=== PATIENT | female | born 1970 | race African-American/Black ===

== ENCOUNTER 2023-12-18 01:30 | Day surgery (SDC) | payer BC, SELFPAY ==
[2023-12-06 14:39] VITALS: BMI 41.8
--- NOTE | 2023-12-06 15:20 | PC.NURSE ---
Report to the Outpatient Waiting Room, entrance under the green pavilion located off [facility], at time ___0600am__ on date _Mon12/18/23 . Planned Procedure Time: __0730am . Time changes happen often and if your time is changed the preop area will call you the afternoon before. - You and your visitor will be asked to self-screen and do not enter if you have any COVID symptoms. - A mask is optional within the hospital at this time. - No food or drink for 8 hrs until time of surgery Take the following medications with a SIP of water the morning of surgery: ___escitalopram if desired DO NOT STOP ANY OF YOUR OTHER PRESCRIPTION MEDICATIONS PRIOR TO SURGERY ?EXCEPT THE FOLLOWING Medications to discontinue per physician none Date to take last dose____none Please no make-up, nail greenlandic, hairspray, perfume, deodorant, or body powder the day of surgery. No jewelry (including any body piercings) or valuables the day of surgery, leave them at home. Please take a shower or bath the night before, or the morning of, surgery with an antibacterial soap. Wear comfortable, loose fitting clothing. - Jewelry must be removed prior to entering the operating room. Rings and piercings that are not removed may be cut off. - The hospital will not accept responsibility for valuables. - Please leave all valuables, including medications, at home the day of surgery. If you are going home after surgery, a licensed lokie driver must drive you home. - NO public transportation without another adult if you receive anesthesia. - We recommend that an adult stay with you for 24 hours following discharge. - We also recommend that you do not drive, make important decision, drink alcoholic beverages, or take any drugs that were not prescribed by your health care provider for at least 24 hours after your discharge time. Follow any additional instructions given to you from your surgeon. If you or anyone in your household have experienced Covid symptoms in the past week, please notify your surgeon or the nurse liaison at the phone number below for possible testing. Telephone instructions given to __Dawn and asked if any additional questions and then verbalized understanding. Patient advised to call surgeon office or pre surgery nurse liaison [phone] if any additional questions.
[2023-12-18] VITALS (9 sets, daily range): BP systolic 116–162; BP diastolic 74–92; PULSE 61–89; RESP 12–18; TEMP 36.4–36.6; O2SAT 99–100
[2023-12-18] MEDS: LACTATED RINGERS 1,000 ML 30 ML IV CONT ×2 (06:28→10:24)
[2023-12-18] MEDS: SCOPOLAMINE 1 MG PATCH 1 PATCH TRANSDERM (06:44)
--- NOTE | 2023-12-18 06:50 | P.PNAN_ITS ---
Anes - Initial Pre Proc Eval Procedure: Operation Date: 12/18/23 07:30 Proposed Procedures p Bilateral Breast Reduction - Izabela Velasquez MD Date/Time: 12/18/23 06:50 Surgeon: Izabela Velasquez MD Pre Op Diagnosis: bilat breast hypertrophy Patient Data Age: 52 Gender: F Height: 1.65 m Weight: 113.2 kg Last Vital Signs Temp 36.6 C 12/18/23 06:18 Pulse 89 12/18/23 06:18 Resp 18 12/18/23 06:18 BP 116/76 12/18/23 06:18 Pulse Ox 100 12/18/23 06:18 O2 Del Method Room Air 12/18/23 06:18 Allergies Allergy/AdvReac Type Severity Reaction Status Date / Time adhesive tape AdvReac Intermediate Rash Verified 12/18/23 06:35 Home Medications Medication Instructions Recorded Confirmed Type escitalopram oxalate 20 mg tablet 20 mg PO DAILY 12/06/23 12/18/23 History Patient hx anesthesia problems: none Family hx anesthesia problems: none Results Review: All pre-operative results and documents have been reviewed as part of the pre- operative evaluation. [facility] Past Medical History Medical History (Updated 12/18/23 @ 06:50 by Faizan Dumont MD) Morbid obesity Surgical History Surgical History (Updated 12/18/23 @ 06:51 by Faizan Dumont MD) H/O: hysterectomy History of section Social History Social History Smoking packs per day: 0.5 Smoking cigarettes per day: 10.0 Years smoked: 20 Smoking pack-years: 10.00 Smoking status: Current some day smoker Tobacco type: e-cigarettes/vaping Second hand tobacco smoke exposure: No Additional smoking assessment comments: SWITCHED TO VAPING IN 2022 Alcohol intake: current Substance use: never Substance use type: does not use Do You Feel Safe in your Home?: Yes Lack of Transportation: No Lack of Food: Never True Current Housing: I Have Housing Concerned About Future Housing: No Difficulty Paying Gas/Electric Bills: No Difficulty Paying for Meds: No Currently Unemployed: No Education: High School Diploma/GED Difficulty w/ Childcare or Family Care: No Living arrangements: alone Spiritual care concerns: No Anes - Eval Final PreProcedure Day of Procedure 12/18/23 06:50 Patient weight: morbidly obese Heart: regular rate and rhythm Lungs: clear to auscultation Airway: Mallampati scale class II Neurological: alert and oriented Last oral intake: >/= 8 hours ASA classification: III Emergent: no Anesthetic plan: proceed Anesthesia type and monitoring: general ETT and standard monitoring Results Review: All pre-operative results and documents have been reviewed as part of the pre- operative evaluation. Informed Consent: The patient's anesthetic plan and its attendant risks and benefits were discussed with the patient/family/POA. Questions were solicited and answers provided to the satisfaction of the patient/family/POA.
--- NOTE | 2023-12-18 07:14 | P.HPUP_ITS ---
History and Physical Update Update Date/Time: 12/18/23 07:14 Patient seen and examined in pre-operative holding area. No interval change in medical history or symptoms. Patient remembers previous discussion of benefits and alternatives to procedure. Continues to desire to proceed with bilateral breast reduction. I reviewed the risks including but not limited to bleeding ,infection, asymmetry, undesireable cosmetic appearance, partial/total skin/nipple loss, no change or worsening of symptoms, change in sensation. I discussed the possible use of assistants and their level of participation in the case. Patient stated understanding and signed the consent form wishing to pr oceed
--- NOTE | 2023-12-18 07:14 | W.PM.PROC2 ---
Procedure Note - Detailed Date of Procedure 12/18/23 Pre-op Diagnosis bilat macromastia Post-op Diagnosis Same Procedure Performed b/l breast reduction Surgeon Izabela Velasquez MD Computing Tutor Paige Albarado PA-C Anesthesia General Description of Procedure Patient was seen in the preoperative holding area where consent form was signed was signed and markings were made for a bilateral inferior pedicle Mitchell pattern reduction mammoplasty. Patient was taken back to the operating room placed on the table in the supine position. Time-out was performed with Anesthesia, surgeon, and staff agreeing on patient's name site and surgery to be performed. SCDs were placed on the lower extremities inflated. Antibiotics were given IV. After general anesthesia was administered breasts were prepped and draped in usual sterile fashion. Attend my attention 1st to the right breast where I used a saline moistened lap pad and Jeanne clamp to create a breast tourniquet. I used a 38 mm nipple Sizer to circumscribe the nipple-areolar complex. I then proceeded with de epithelializing an 8 cm wide inferior pedicle. I made my other skin incisions with a 15 blade scalpel through skin and dermis. Bovie cautery was then used to dissect down and elevate my superior skin flaps and Ezio's plane down to the level of the chest wall and up to the level of the clavicle. Now having exposed the right breast I proceeded with resection of 1763 g of tissue with Bovie cautery. I irrigated with normal saline. Hemostasis was achieved with Bovie cautery. I proceeded with plicating the pedicle using 2-0 Vicryl suture. 2-0 Prolene was used to secure the T junction. 3-0 Vicryl was used for dermis. The nipple was brought out 6 cm above the inframammary fold at the most prominent portion of the breast the breast midline. This was secured with 3-0 Vicryl suture. 4-0 Monocryl was used for subcuticular closure. I injected 20 cc of 1% lidocaine with epinephrine and 0.5% Marcaine plain along the inframammary fold and anterior axillary line of breast. And I took my attention to the left breast post similar procedure was performed. I used a breast tourniquet Jeanne clamp and a 38 mm nipple Sizer. De-epithelialized an 8 cm wide inferior pedicle. Minimi the skin incisions and elevated the skin flaps with Bovie cautery and compression plane down to the chest wall and up to the level of the clavicle. I proceeded with resection of 1857 g from the larger left breast. This appeared to be reasonable volume and symmetry to the right breast. I irrigated with normal saline. Hemostasis was achieved with Bovie cautery. I plicated the pedicle with 2-0 Vicryl suture. 2-0 Prolene was used to secure the T-junction. 3-0 Vicryl was used for dermis. The nipple was brought out 6 cm above the inframammary fold at the most prominent portion of the breast at the breast midline and secured with 3-0 Vicryl suture. 4-0 Monocryl was used for subcuticular closure. Again injected 20 cc of 1% lidocaine with epinephrine and 0.5% Marcaine plain for local on the left breast along the inframammary fold and anterior axillary line. There is reasonable size shape and symmetry to the breast. The nipples appeared viable with good cap refill. I Proceed with placing a dressing of Mastisol, Steri-Strips, 4x4s, ABDs and a breast binder. The patient was awakened from anesthesia and transferred to the recovery room in stable condition. Complications: None Estimated blood loss: 75 cc Disposition: Patient tolerated the procedure well and will be going home today. Paige Albarado PA-C was essential for positioning, retraction, closure and dressing placement [facility] [place] Billing Surgery - Charge Forward: Surgery Billing ([id number] same for paige adding modifier )
[2023-12-18] MEDS: ceFAZolin 2 GM/D5W 50 ML 2 GM/50 ML BAG IVPB (07:29)
[2023-12-18] MEDS: LIDO 1%/EPINEPHRINE 1:100,000 50 ML VIAL INFILTRATE (07:58)
[2023-12-18] MEDS: BUPivacaine HCL 0.5% 10 ML AMP 50 ML INFILTRATE (07:59)
--- NOTE | 2023-12-18 09:26 | SUR.OPER ---
Addendum entered by Barbara Gamboa RN 12/18/23 09:53: Left breast tissue- 1857.2g Original Note: Left breast tissue- 1823.8 g Right breast tissue- 1763.6 g
[2023-12-18] MEDS: fentaNYL CITRATE INJ (*CRX) 100 MCG/2 ML VIAL 25 MCG IV PUSH ×2 (10:41→10:46)
[2023-12-18] MEDS: oxyCODONE HCL (*CRX) 5 MG TAB IR PO (12:17)
--- NOTE | 2023-12-18 12:24 | SUR.PHASEII ---
Spoke with Fior DALE regarding patient's drainage to right lateral breast. Fior stated to reinforce with ABD pads and okay for patient to be discharged.
== END 2023-12-18 12:38 | disposition home or self-care (01) ==
PROVIDERS: PCP Family Medicine; Visit Provider Plastic Surgery
PROC: 0HBV0ZZ Excision of Bilateral Breast, Open Approach (ICD-10-PCS; CPT 19318; principal; 2023-12-18 07:30)
DX: N62 Hypertrophy of breast (principal); F17.290 Nicotine dependence, other tobacco product, uncomplicated; E66.01 Morbid (severe) obesity due to excess calories; Z68.41 Body mass index [BMI] 40.0-44.9, adult; Z98.890 Other specified postprocedural states
CPT/HCPCS: 19318; 88305; A9270; J0690; J1100; J1170; J2250; J2405; J2704; J3010; J7120